=== PATIENT | female | born 1965 | race Two or more races ===

== ENCOUNTER 2024-07-09 08:06 | Emergency (ER) | payer MEDICAID, OTHER ==
[~2024-07-09] VITALS: Ht 162.6 cm; Wt 110.0 kg
[2024-07-09 09:00] VITALS: BP 172/98; PULSE 96; RESP 15; TEMP 98.1; O2SAT 97
[2024-07-09] MEDS ORDERED: BACDST PO (12:03)
[2024-07-09] MEDS ORDERED: CEPH500C PO (12:03)
[2024-07-09] MEDS ORDERED: cefTRIAXone SOD 1,000 MG VL IM ONE (12:15)
== END 2024-07-09 12:04 | disposition left against medical advice (07) ==
LOC: ER 08:06
DX: N61.1 Abscess of the breast and nipple (principal)
CPT/HCPCS: 76642